=== PATIENT | male | born 1940 | race American Indian/Alaskan Native ===

== ENCOUNTER 2016-10-02 09:51 | Outpatient (CLI) | payer MEDICARE ==
--- NOTE | 2016-10-02 13:19 | Cat Scan Report ---
CT ABDOMEN AND PELVIS WITHOUT CONTRAST INDICATION: Malignant neoplasm of prostate. COMPARISON: None similar. FINDINGS: Abdomen and pelvis CT performed following oral contrast only. LUNG BASES: Coronary and aortic atherosclerotic calcifications. Normal heart size. Minimal anterior pericardial thickening/fluid measuring 6 mm AP, axial image 25, series 2. Increased AP chest diameter. Approximately 2.7 cm right lateral chest wall lipoma, axial image 20. Nonspecific distal esophageal wall prominence/thickening, not excluded for gastroesophageal reflux and/or hiatal hernia, amongst others. ABDOMEN: Please note that sensitivity to detect small visceral lesions is limited due to the absence of intravenous contrast. Small hepatic calcified granuloma centrally. Innumerable tiny dependent gallstones, individually measuring to the order of 3-4 mm. Slight nonspecific bilateral perinephric stranding. Otherwise grossly unremarkable unenhanced liver, spleen, pancreas, adrenals, nonaneurysmal abdominal aorta with few atherosclerotic calcifications, IVC and non-hydronephrotic kidneys. No ascites or definite significant adenopathy. Opacified GI tract nonobstructive. Normal appendix. Mild to moderate colonic stool/possible constipation. Numerous descending colon diverticuli. Small fat containing umbilical hernia with a transverse neck of 1 cm. A supraumbilical midline ventral wall hernia containing fat and few small mesenteric vessels noted on axial image 112, series 2 with approximately 2.2 cm transverse defect while another tiny fat containing supraumbilical midline hernia noted approximately 1.8 cm inferior to it as on axial image 132. PELVIS: Approximately 6 cm AP x 6.5 cm transverse enlarged prostate as on axial image 91, series 2 creates an impression at the bladder base and may be correlated for clinically and with PSA. Multiple small dependent calculi in the urinary bladder also noted individually measuring to the order of 4-5 mm. Mild rectosigmoid stool. Few left hemipelvic phleboliths. No free fluid or size significant adenopathy. Approximately 2 cm fat containing right inguinal hernia while approximately 1 cm on the left. Multilevel spinal degenerative spurring, including prominent lower thoracic spine right-sided osteophytes. Mild lower lumbar facet arthropathy as well. Severe L5-S1 disc narrowing. Bilateral SI joint degenerative bridging, left more than right with partial joint space obliteration. CONCLUSION: 1. Enlarged prostate without definite metastatic disease identified on this unenhanced CT. 2. Various other incidental findings, including atherosclerotic calcifications, right lateral chest wall lipoma, COPD, cholelithiasis, diverticulosis, multiple ventral and inguinal hernia, urinary bladder calculi as also spinal degenerative changes, amongst others, as described. Please correlate. Thank you for the opportunity to participate in this patient's care.
== END 2016-10-02 09:52 | disposition home or self-care (01) ==
LOC: NM 09:51
PROVIDERS: ATTEND Urology
DX: C61 Malignant neoplasm of prostate (principal); K80.20 Calculus of gallbladder without cholecystitis without obstruction; N21.0 Calculus in bladder; K43.9 Ventral hernia without obstruction or gangrene; K42.9 Umbilical hernia without obstruction or gangrene; K40.90 Unilateral inguinal hernia, without obstruction or gangrene, not specified as recurrent; K57.30 Diverticulosis of large intestine without perforation or abscess without bleeding; N40.0 Benign prostatic hyperplasia without lower urinary tract symptoms; I25.10 Atherosclerotic heart disease of native coronary artery without angina pectoris; I70.0 Atherosclerosis of aorta; K75.3 Granulomatous hepatitis, not elsewhere classified; I87.8 Other specified disorders of veins; M25.78 Osteophyte, vertebrae; M12.88 Other specific arthropathies, not elsewhere classified, other specified site
CPT/HCPCS: 74176; 78306; A9503